=== PATIENT | female | born 1950 | race Caucasian/White ===

== ENCOUNTER → 2017-03-07 | Outpatient (CLI) | payer OTHER, BC ==
[~2017-03-07] MED LIST: AMLODIPINE BES2.5 MG; BACTRIM,SEPT1 TABLE1; BUTALB-APAP-CA1 EACH PO; CIPRO500 M1 PO; CO-Q10 PO; CRANBERRY PO; CYMBALTA20 MG; CYMBALTA20 MG PO; CYMBALTA60 MG; FISH OIL PO; FUROSEMIDE20 MG PO; FUROSEMIDE40 MG PO; GABAPENTIN600 MG PO; HYDROCODON-ACE1 EACH PO; IBUPROFEN800 MG PO; MAGNESIUM250 MG PO; MECLIZINE HCL25 M3 PO; METFORMIN HCL500 MG PO; MOTRIN IB200 MG PO; ONE-A-DAY WOME1 EAC1 PO; OXCARBAZEPINE150 MG PO; PYRIDIUM200 MG PO; ROXICODONE5 MG PO; TORADOL10 MG PO; TRIBENZOR 40-11 EAC1 PO; VALIUM5 MG PO; VITAMIN B-6100 MG PO; VITAMIN D1000 INTUN PO; ZESTORETIC,P1 TABLE2 PO; ZETIA10 MG PO
== END | disposition home or self-care (01) ==
LOC: NUC 09:40
DX: M17.12 Unilateral primary osteoarthritis, left knee (principal); R93.7 Abnormal findings on diagnostic imaging of other parts of musculoskeletal system
CPT/HCPCS: 78315; A9503

== ENCOUNTER 2017-05-20 08:49 | Inpatient (IN) | payer OTHER, BC ==
[~2017-05-20] VITALS: Ht 162.6 cm; Wt 79.8 kg
[~2017-05-20 08:49] MED LIST changes: +B-COMPLEX-VITA1 EACH PO; +BIOTIN PO; +DAILY VALUE1 EACH PO; +FIORICET 50-301 EACH PO; +GLUCOPHAGE1000 MG PO; +GLUCOTROL5 MG PO; +K-DUR20 MEQ PO; +PAMELOR50 MG PO; +PRILOSEC OTC20 MG PO; +SAVELLA50 MG PO; +VITAMIN D3 PO
[2017-05-20 09:21] LABS: POINT-OF-CARE METER ID UU13113694
[2017-05-20 10:04] VITALS: BP 166/80
[2017-05-20 14:44] LABS: POINT-OF-CARE METER ID UU13113675
[2017-05-20 15:04] LABS: HEMATOCRIT 38.9 % (36.0-46.0); MCH 31.7 PG (29.0-34.0); MCHC 33.7 G/DL (30.0-36.0); MCV 94.2 FL (83-99); MEAN PLAT.VOLUME 9.5 uM^3 (9.5-12.4); PLATELET COUNT 227 K/uL (156-360); RBC DIS.WIDTH-CV 12.9 % (11.8-14.6); RBC DIS.WIDTH-SD 44.4 % (39-53); RED BLOOD COUNT 4.13 M/uL (3.80-5.20); WHITE BLOOD COUNT 6.1 K/uL (4.1-10.2)
[2017-05-20 16:39] VITALS: BP 126/71
[2017-05-20 18:08] LABS: POINT-OF-CARE METER ID UU14174215
[2017-05-20 19:59] VITALS: BP 139/80
[2017-05-20 21:54] LABS: POINT-OF-CARE METER ID UU14174215
[2017-05-21 00:16] VITALS: BP 124/76
[2017-05-21 03:55] VITALS: BP 157/80
[2017-05-21 06:12] LABS: HEMATOCRIT 40.5 % (36.0-46.0); MCV 91.4 FL (83-99)
[2017-05-21 06:41] LABS: ANION GAP 12 MEQ/L (2-14); CHLORIDE 99 MEQ/L (99-109); GFR ESTIMATE (CALCULATED) > 59 mL/min/; GLUCOSE 166 mg/dL (70-99); SAMPLE HEMOLYSIS CHECK 1; SAMPLE ICTERIC CHECK 0; SAMPLE LIPEMIA CHECK 0; SODIUM 135 MEQ/L (136-147); UREA NITROGEN (BUN) 8 mg/dL (9-23)
[2017-05-21 08:01] VITALS: BP 139/81
[2017-05-21 11:13] LABS: POINT-OF-CARE METER ID UU14174215
[2017-05-21 11:50] VITALS: BP 134/60
[2017-05-21 15:42] VITALS: BP 129/71
[2017-05-21 16:16] LABS: POINT-OF-CARE METER ID UU14174215
[2017-05-21 20:11] VITALS: BP 135/76
[2017-05-21 21:49] LABS: POINT-OF-CARE METER ID UU14174215
[2017-05-22 00:37] VITALS: BP 111/57
[2017-05-22 04:26] VITALS: BP 119/66
[2017-05-22 06:35] LABS: HEMATOCRIT 36.1 % (36.0-46.0); MCV 93.8 FL (83-99)
[2017-05-22 07:45] LABS: POINT-OF-CARE METER ID UU14174215
[2017-05-22 08:15] VITALS: BP 101/58
[2017-05-22] MEDS ORDERED: LOVENOX40 MG/0.4 SC (08:35)
[2017-05-22] MEDS ORDERED: CELECOXIB200 MG PO (08:35)
[2017-05-22] MEDS ORDERED: OXYCONTIN10 MG PO (08:35)
[2017-05-22] MEDS ORDERED: ENDOCET 5-3251 EACH PO (08:35)
[2017-05-22 11:17] LABS: POINT-OF-CARE METER ID UU14174215
[2017-05-22 11:41] VITALS: BP 119/57
== END 2017-05-22 16:45 | DRG 465 ==
LOC: 2SOUTH 08:49 → 3WEST 16:10
PROVIDERS: Orthopaedic Surgery
DX: T84.84XA Pain due to internal orthopedic prosthetic devices, implants and grafts, initial encounter (principal); Y83.1 Surgical operation with implant of artificial internal device as the cause of abnormal reaction of the patient, or of later complication, without mention of misadventure at the time of the procedure; I10 Essential (primary) hypertension; M79.7 Fibromyalgia; E11.9 Type 2 diabetes mellitus without complications; Z96.651 Presence of right artificial knee joint; G62.9 Polyneuropathy, unspecified; M25.861 Other specified joint disorders, right knee
CPT/HCPCS: 73562; 80048; 82948; 85014; 85018; 85027; 97530 GO; C1713; J0690; J1170; J1650; J1815; J2250; J2405; J3010; J7050

== ENCOUNTER → 2017-07-03 | Outpatient (CLI) | payer OTHER ==
[~2017-07-03] VITALS: Ht 162.6 cm; Wt 77.1 kg
[~2017-07-03] MED LIST changes: +CELECOXIB200 MG PO; +ENDOCET 5-3251 EACH PO; +LOVENOX30 MG/0.3 SC; +LOVENOX40 MG/0.4 SC; +OXYCONTIN10 MG PO
[2017-07-03 09:27] LABS: MCH 32.7 PG (29.0-34.0); MCHC 35.1 G/DL (30.0-36.0); MEAN PLAT.VOLUME 9.9 uM^3 (9.5-12.4); PLATELET COUNT 214 K/uL (156-360); RBC DIS.WIDTH-CV 12.9 % (11.8-14.6); RBC DIS.WIDTH-SD 43.7 % (39-53); RED BLOOD COUNT 3.98 M/uL (3.80-5.20); WHITE BLOOD COUNT 6.2 K/uL (4.1-10.2)
[2017-07-03 09:33] LABS: PROTHROMBIN TIME 11.1 SEC (10.2-12.9)
[2017-07-03 09:59] LABS: POINT-OF-CARE METER ID UU14174212
== END | disposition home or self-care (01) ==
LOC: OPR 08:22 → EDSTATUS 09:00 → OPR 09:00
PROVIDERS: Internal Medicine Gastroenterology
DX: K76.0 Fatty (change of) liver, not elsewhere classified (principal); K21.9 Gastro-esophageal reflux disease without esophagitis; E11.9 Type 2 diabetes mellitus without complications; M79.7 Fibromyalgia; Z88.2 Allergy status to sulfonamides; Z79.84 Long term (current) use of oral hypoglycemic drugs
CPT/HCPCS: 77012; 82948; 85027; 85610; 85730; J3010

== ENCOUNTER 2018-05-21 19:40 | Emergency (ER) | payer OTHER, BC ==
[~2018-05-21] VITALS: Ht 162.6 cm; Wt 75.0 kg
[~2018-05-21 19:40] MED LIST changes: -BIOTIN PO; +BIOTIN1 MG PO
[2018-05-21 21:29] LABS: HEMATOCRIT 44.4 % (36.0-46.0); HEMOGLOBIN 15.9 G/DL (11.9-15.5); MCH 32.8 PG (29.0-34.0); MCHC 35.8 G/DL (30.0-36.0); PLATELET COUNT 242 K/uL (156-360); RBC DIS.WIDTH-CV 12.5 % (11.8-14.6); RBC DIS.WIDTH-SD 41.8 % (39-53); RED BLOOD COUNT 4.85 M/uL (3.80-5.20); WHITE BLOOD COUNT 7.4 K/uL (4.1-10.2)
[2018-05-21 21:30] LABS: MCV 91.5 FL (83-99)
[2018-05-21 21:34] LABS: CHLORIDE 101 mEq/L (99-109); POTASSIUM 3.4 mEq/L (3.7-5.4); SODIUM 141 mEq/L (136-147)
[2018-05-21 21:36] LABS: GLUCOSE 156 mg/dL (70-99)
[2018-05-21 21:40] LABS: CREATININE 0.8 mg/dL (0.6-1.3); GFR ESTIMATE (CALCULATED) > 59 mL/min/; UREA NITROGEN (BUN) 6 mg/dL (9-23)
[2018-05-21 22:04] LABS: INTER. NORMALIZED RATIO 1.1
[2018-05-21 22:07] LABS: PTT 28.1 SEC (25-37)
[2018-05-21 23:44] VITALS: BP 120/75
== END 2018-05-21 23:44 | disposition home or self-care (01) ==
LOC: EME 19:40
PROVIDERS: Emergency Medicine
PROC: 0HQNXZZ Repair Left Foot Skin, External Approach (ICD-10-PCS; principal; 2018-05-21)
DX: S91.115A Laceration without foreign body of left lesser toe(s) without damage to nail, initial encounter (principal); S93.105A Unspecified dislocation of left toe(s), initial encounter; W08.XXXA Fall from other furniture, initial encounter; E11.40 Type 2 diabetes mellitus with diabetic neuropathy, unspecified; E78.5 Hyperlipidemia, unspecified; I10 Essential (primary) hypertension; K21.9 Gastro-esophageal reflux disease without esophagitis; M79.7 Fibromyalgia; Z88.2 Allergy status to sulfonamides; G89.29 Other chronic pain; Z79.01 Long term (current) use of anticoagulants
CPT/HCPCS: 72040; 73630; 80048; 85027; 85610; 85730; 99281; 99285; J0690

== ENCOUNTER 2018-05-26 08:44 | Inpatient (IN) | payer OTHER, BC ==
[~2018-05-26] VITALS: Ht 162.6 cm; Wt 85.5 kg
[2018-05-26 09:18] LABS: BASOPHIL (%) 0.3 % (0-1); EOSINOPHIL (%) 0 % (0-5); HEMATOCRIT 42.8 % (36.0-46.0); HEMOGLOBIN 15.3 G/DL (11.9-15.5); IMMATURE GRANULOCYTE (%) 0.4 % (0.0-0.7); LYMPHOCYTE (%) 12.8 % (15-42); LYMPHOCYTE COUNT 1.5 K/uL (1.0-2.8); MCH 32.7 PG (29.0-34.0); MCHC 35.7 G/DL (30.0-36.0); MCV 91.5 FL (83-99); MONOCYTE COUNT 0.8 K/uL (0-0.8); NEUTROPHIL (%) 79.5 % (45-76); NEUTROPHIL COUNT 9.5 K/uL (1.8-6.4); PLATELET COUNT 273 K/uL (156-360); RBC DIS.WIDTH-CV 12.5 % (11.8-14.6); RBC DIS.WIDTH-SD 41.4 % (39-53); RED BLOOD COUNT 4.68 M/uL (3.80-5.20); WHITE BLOOD COUNT 11.9 K/uL (4.1-10.2)
[2018-05-26 09:35] LABS: CHLORIDE 92 mEq/L (99-109); POTASSIUM 3.3 mEq/L (3.7-5.4)
[2018-05-26 09:37] LABS: GLUCOSE 234 mg/dL (70-99); SODIUM 133 mEq/L (136-147)
[2018-05-26 09:42] LABS: CREATININE 0.8 MG/DL (0.6-1.3); GFR ESTIMATE (CALCULATED) > 59 mL/min/; UREA NITROGEN (BUN) 10 mg/dL (9-23)
[2018-05-26 09:51] LABS: TROP-I INTERPRETATION NEGATIVE; TROPONIN-I < 0.01 ng/mL (0.0-0.30)
[2018-05-26] MEDS ORDERED: PANTOPRAZOLE SO20 MG PO (12:26)
[2018-05-26] MEDS ORDERED: METOPROLOL TART25 MG PO (12:27)
[2018-05-26] MEDS ORDERED: AMITIZA24 MICROGR PO (13:19)
[2018-05-26 13:24] LABS: BASE EXCESS 5.7 mEq/L (-3 to +3); BICARBONATE 31.7 mEq/L (22-26); CARBOXY HGB 2.5 % (0-5); COMMENTS - BLOOD GASES A+C+; DEVICE VM; FI02 40 %; METHEMOGLOBIN 1.2 % (0-1.5); O2 FLOW 8 L/MIN; O2 SATURATION (CALCULATED) 92.9 % (95-99); PCO2 50 mm Hg (35-45); PO2 71 mm Hg (80-100); SITE RR; TOTAL RESP RATE 16 resp/min; pH 7.41 (7.35-7.45)
[2018-05-26 14:47] VITALS: BP 136/81
[2018-05-26 17:54] LABS: APPEARANCE CLEAR ((CLEAR)); BILIRUBIN NEGATIVE; BLOOD SMALL; COLOR AMBER ((YELLOW)); GLUCOSE (STRIP) >=500; KETONES NEGATIVE; LEUKOCYTES MODERATE; NITRITE NEGATIVE; PROTEIN (STRIP) NEGATIVE; SPECIFIC GRAVITY 1.033 (1.000-1.030)
[2018-05-26 18:09] LABS: BACTERIA RARE /HPF; EPITHELIAL CELLS RARE /HPF; MUCUS NONE SEEN /LPF; RED BLOOD CELLS TNTC /HPF (0-5); UCUL ADDED? YES; WHITE BLOOD CELLS 30-40 /HPF (0-5)
[2018-05-26 19:26] VITALS: BP 146/91
[2018-05-27 00:15] VITALS: BP 145/86
[2018-05-27 05:28] LABS: HEMATOCRIT 42.5 % (36.0-46.0); HEMOGLOBIN 14.6 G/DL (11.9-15.5); MCH 32.2 PG (29.0-34.0); MCHC 34.4 G/DL (30.0-36.0); MCV 93.8 FL (83-99); PLATELET COUNT 249 K/uL (156-360); RBC DIS.WIDTH-CV 12.5 % (11.8-14.6); RBC DIS.WIDTH-SD 43.5 % (39-53); RED BLOOD COUNT 4.53 M/uL (3.80-5.20); WHITE BLOOD COUNT 11.7 K/uL (4.1-10.2)
[2018-05-27 05:55] LABS: CHLORIDE 95 MEQ/L (99-109); CREATININE 0.6 MG/DL (0.6-1.3); GFR ESTIMATE (CALCULATED) > 59 mL/min/; GLUCOSE 302 mg/dL (70-99); SODIUM 135 MEQ/L (136-147); UREA NITROGEN (BUN) 9 mg/dL (9-23)
[2018-05-27 06:20] LABS: POTASSIUM 4.1 MEQ/L (3.7-5.4)
[2018-05-27 07:42] VITALS: BP 180/111
[2018-05-27 10:41] VITALS: BP 179/85
[2018-05-27 16:26] VITALS: BP 140/84
[2018-05-27 17:32] LABS: TROP-I INTERPRETATION NEGATIVE; TROPONIN-I < 0.01 ng/mL (0.0-0.30)
[2018-05-27 19:00] VITALS: BP 146/80
[2018-05-27 22:30] VITALS: BP 175/92
[2018-05-27 23:53] LABS: TROP-I INTERPRETATION NEGATIVE; TROPONIN-I < 0.01 ng/mL (0.0-0.30)
[2018-05-28 04:30] VITALS: BP 150/84
[2018-05-28 05:54] LABS: BASOPHIL (%) 0.1 % (0-1); EOSINOPHIL (%) 0 % (0-5); HEMATOCRIT 39.1 % (36.0-46.0); HEMOGLOBIN 13.5 G/DL (11.9-15.5); IMMATURE GRANULOCYTE (%) 0.6 % (0.0-0.7); LYMPHOCYTE (%) 7.8 % (15-42); MCH 32.5 PG (29.0-34.0); MCHC 34.5 G/DL (30.0-36.0); MCV 94.2 FL (83-99); MONOCYTE (%) 3.9 % (3-12); MONOCYTE COUNT 0.5 K/uL (0-0.8); NEUTROPHIL (%) 87.6 % (45-76); NEUTROPHIL COUNT 10.9 K/uL (1.8-6.4); PLATELET COUNT 287 K/uL (156-360); RBC DIS.WIDTH-CV 12.4 % (11.8-14.6); RBC DIS.WIDTH-SD 43.3 % (39-53); RED BLOOD COUNT 4.15 M/uL (3.80-5.20); WHITE BLOOD COUNT 12.4 K/uL (4.1-10.2)
[2018-05-28 06:11] LABS: ALBUMIN 3.4 G/DL (3.2-4.8); ALKALINE PHOSPHATASE 113 IU/L (3-129); ALT (GPT) 61 IU/L (3-49); AST (GOT) 24 IU/L (2-34); CHLORIDE 96 MEQ/L (99-109); CREATININE 0.6 MG/DL (0.6-1.3); GFR ESTIMATE (CALCULATED) > 59 mL/min/; GLUCOSE 289 mg/dL (70-99); POTASSIUM 4.1 MEQ/L (3.7-5.4); SODIUM 137 MEQ/L (136-147); TOTAL BILIRUBIN 0.6 MG/DL (0.0-1.0); TOTAL PROTEIN 6.6 G/DL (6.4-8.3)
[2018-05-28 06:14] LABS: UREA NITROGEN (BUN) 21 mg/dL (9-23)
[2018-05-28 06:35] LABS: TROP-I INTERPRETATION NEGATIVE; TROPONIN-I < 0.01 ng/mL (0.0-0.30)
[2018-05-28 08:09] VITALS: BP 132/59
[2018-05-28 09:58] LABS: HEMOGLOBIN A1c (GLYCOHEMOGLOB) 7.4 % (Below 5.7)
[2018-05-28 11:31] VITALS: BP 139/83
[2018-05-28 15:37] VITALS: BP 154/85
[2018-05-28 19:15] VITALS: BP 117/89
[2018-05-28 23:00] VITALS: BP 158/76
[2018-05-29 03:00] VITALS: BP 140/75
[2018-05-29 05:52] LABS: BASOPHIL (%) 0.1 % (0-1); EOSINOPHIL (%) 0 % (0-5); HEMATOCRIT 38.7 % (36.0-46.0); HEMOGLOBIN 13.3 G/DL (11.9-15.5); IMMATURE GRANULOCYTE (%) 0.7 % (0.0-0.7); LYMPHOCYTE (%) 15.5 % (15-42); LYMPHOCYTE COUNT 1.4 K/uL (1.0-2.8); MCH 32.4 PG (29.0-34.0); MCHC 34.4 G/DL (30.0-36.0); MCV 94.2 FL (83-99); MONOCYTE (%) 4.4 % (3-12); MONOCYTE COUNT 0.4 K/uL (0-0.8); NEUTROPHIL (%) 79.3 % (45-76); NEUTROPHIL COUNT 7.2 K/uL (1.8-6.4); PLATELET COUNT 280 K/uL (156-360); RBC DIS.WIDTH-CV 12.2 % (11.8-14.6); RBC DIS.WIDTH-SD 42.6 % (39-53); RED BLOOD COUNT 4.11 M/uL (3.80-5.20)
[2018-05-29 06:16] LABS: ALKALINE PHOSPHATASE 92 IU/L (3-129); ALT (GPT) 44 IU/L (3-49); AST (GOT) 20 IU/L (2-34); CHLORIDE 98 MEQ/L (99-109); CREATININE 0.7 MG/DL (0.6-1.3); GFR ESTIMATE (CALCULATED) > 59 mL/min/; GLUCOSE 215 mg/dL (70-99); POTASSIUM 3.5 MEQ/L (3.7-5.4); SODIUM 138 MEQ/L (136-147); TOTAL BILIRUBIN 0.6 MG/DL (0.0-1.0); TOTAL PROTEIN 6.6 G/DL (6.4-8.3); UREA NITROGEN (BUN) 29 mg/dL (9-23)
[2018-05-29 07:42] VITALS: BP 176/92
[2018-05-29 12:18] VITALS: BP 157/94
[2018-05-29 15:59] VITALS: BP 169/84
[2018-05-29 20:17] VITALS: BP 138/78
[2018-05-29 23:07] VITALS: BP 136/82
[2018-05-30 04:36] VITALS: BP 140/88
[2018-05-30 05:36] LABS: BASOPHIL (%) 0.4 % (0-1); EOSINOPHIL (%) 0 % (0-5); HEMATOCRIT 38.6 % (36.0-46.0); HEMOGLOBIN 13.4 G/DL (11.9-15.5); IMMATURE GRANULOCYTE (%) 1.4 % (0.0-0.7); LYMPHOCYTE (%) 33.9 % (15-42); LYMPHOCYTE COUNT 2.5 K/uL (1.0-2.8); MCH 32.6 PG (29.0-34.0); MCHC 34.7 G/DL (30.0-36.0); MCV 93.9 FL (83-99); MONOCYTE COUNT 0.5 K/uL (0-0.8); NEUTROPHIL (%) 57.3 % (45-76); NEUTROPHIL COUNT 4.2 K/uL (1.8-6.4); PLATELET COUNT 237 K/uL (156-360); RBC DIS.WIDTH-CV 12.3 % (11.8-14.6); RBC DIS.WIDTH-SD 42.6 % (39-53); RED BLOOD COUNT 4.11 M/uL (3.80-5.20); WHITE BLOOD COUNT 7.3 K/uL (4.1-10.2)
[2018-05-30 05:53] LABS: CHLORIDE 100 MEQ/L (99-109); CREATININE 0.6 MG/DL (0.6-1.3); GFR ESTIMATE (CALCULATED) > 59 mL/min/; GLUCOSE 144 mg/dL (70-99); SODIUM 139 MEQ/L (136-147); UREA NITROGEN (BUN) 19 mg/dL (9-23)
[2018-05-30 08:26] VITALS: BP 175/79
[2018-05-30 10:48] LABS: MAGNESIUM 1.6 mg/dl (1.3-2.7)
[2018-05-30 13:08] VITALS: BP 149/88
[2018-05-30 15:06] VITALS: BP 162/82
[2018-05-30 20:35] VITALS: BP 170/90
[2018-05-30 23:02] VITALS: BP 185/102
[2018-05-31 04:14] VITALS: BP 158/784
[2018-05-31 05:23] LABS: BASOPHIL (%) 0.5 % (0-1); EOSINOPHIL (%) 0.5 % (0-5); HEMOGLOBIN 13.7 G/DL (11.9-15.5); IMMATURE GRANULOCYTE (%) 2.5 % (0.0-0.7); LYMPHOCYTE (%) 31.4 % (15-42); LYMPHOCYTE COUNT 2.7 K/uL (1.0-2.8); MCH 32.2 PG (29.0-34.0); MCHC 34.3 G/DL (30.0-36.0); MCV 93.9 FL (83-99); MONOCYTE (%) 5.8 % (3-12); MONOCYTE COUNT 0.5 K/uL (0-0.8); NEUTROPHIL (%) 59.3 % (45-76); NEUTROPHIL COUNT 5.1 K/uL (1.8-6.4); RBC DIS.WIDTH-CV 12.6 % (11.8-14.6); RBC DIS.WIDTH-SD 43.7 % (39-53); RED BLOOD COUNT 4.26 M/uL (3.80-5.20); WHITE BLOOD COUNT 8.6 K/uL (4.1-10.2)
[2018-05-31 05:45] LABS: ALBUMIN 2.9 G/DL (3.2-4.8); ALKALINE PHOSPHATASE 82 IU/L (3-129); ALT (GPT) 30 IU/L (3-49); AST (GOT) 18 IU/L (2-34); CHLORIDE 101 MEQ/L (99-109); CREATININE 0.6 MG/DL (0.6-1.3); GFR ESTIMATE (CALCULATED) > 59 mL/min/; GLUCOSE 117 mg/dL (70-99); POTASSIUM 3.6 MEQ/L (3.7-5.4); SODIUM 138 MEQ/L (136-147); TOTAL BILIRUBIN 0.6 MG/DL (0.0-1.0); UREA NITROGEN (BUN) 15 mg/dL (9-23)
[2018-05-31 05:47] LABS: TOTAL PROTEIN 5.6 G/DL (6.4-8.3)
[2018-05-31 06:30] LABS: PLAT.SUFFICIENCY ADEQUATE; PLATELET COUNT 209 K/uL (156-360)
[2018-05-31] MEDS ORDERED: LOPRESSOR50 MG PO (08:15)
[2018-05-31] MEDS ORDERED: NAFCILLIN SODIUM2 GM IM (08:15)
[2018-05-31] MEDS ORDERED: MOVANTIK25 MG PO (08:15)
[2018-05-31] MEDS ORDERED: POLYETHYLENE GL17 GM PO (08:15)
[2018-05-31] MEDS ORDERED: PREDNISONE10 MG PO (08:15)
[2018-05-31] MEDS ORDERED: LEVOFLOXACIN750 MG PO (08:15)
[2018-05-31] MEDS ORDERED: BENICAR20 MG PO (08:15)
[2018-05-31] MEDS ORDERED: VENTOLIN HFA18 GM IH (08:15)
[2018-05-31] MEDS ORDERED: TRAMADOL HCL50 MG PO (08:15)
[2018-05-31 09:00] VITALS: BP 139/94
== END 2018-05-31 09:15 | disposition home health service (06) | DRG 189 ==
LOC: EME 08:44 → EDOF 12:44 → 4EAST 12:44 → ENRESERV 12:47 → EDOF 13:28 → ENRESERV 13:40 → 4EAST 14:23
PROVIDERS: Emergency Medicine; Hospitalist; Physician Assistant
DX: J96.01 Acute respiratory failure with hypoxia (principal); J15.9 Unspecified bacterial pneumonia; J44.0 Chronic obstructive pulmonary disease with (acute) lower respiratory infection; R78.81 Bacteremia; R13.10 Dysphagia, unspecified; N31.9 Neuromuscular dysfunction of bladder, unspecified; N39.0 Urinary tract infection, site not specified; B95.2 Enterococcus as the cause of diseases classified elsewhere; L30.9 Dermatitis, unspecified; B95.62 Methicillin resistant Staphylococcus aureus infection as the cause of diseases classified elsewhere; E86.0 Dehydration; E87.6 Hypokalemia; R07.89 Other chest pain; G47.33 Obstructive sleep apnea (adult) (pediatric); I10 Essential (primary) hypertension; E11.9 Type 2 diabetes mellitus without complications; E78.5 Hyperlipidemia, unspecified; K21.9 Gastro-esophageal reflux disease without esophagitis; M79.7 Fibromyalgia; R33.8 Other retention of urine; M43.02 Spondylolysis, cervical region; K59.09 Other constipation; M19.90 Unspecified osteoarthritis, unspecified site; E80.20 Unspecified porphyria; Z66 Do not resuscitate; Z96.651 Presence of right artificial knee joint; E66.9 Obesity, unspecified; Z68.32 Body mass index [BMI] 32.0-32.9, adult; Z79.84 Long term (current) use of oral hypoglycemic drugs; Z86.010 Personal history of colon polyps; Z87.440 Personal history of urinary (tract) infections; Z87.442 Personal history of urinary calculi; Z91.81 History of falling
CPT/HCPCS: 36600; 70450; 71045; 71275; 72125; 72141; 73630; 74018; 76937; 80048; 80053; 81003; 82948; 83036; 83605; 83735; 84145 90; 84484; 85025; 85027; 85379; 87040; 87077; 87086; 87186; 87449; 87801; 93005; 94640; 94799; 99281; 99285; C1769; J0456; J0696; J1644; J1815; J1885; J2060; J2270; J2405; J2920; J2930; J3475; J7030; J7050; J7120; J7512; S0032